=== PATIENT | male | born 1965 | race African-American/Black ===

== ENCOUNTER 2020-04-24 05:59 | Emergency (ER) | payer BC ==
[~2020-04-24] VITALS: Ht 175.3 cm; Wt 81.6 kg
[2020-04-24 06:06] VITALS: Ht 175.3 cm; Wt 81.6 kg
[2020-04-24 08:04] VITALS: BP 131/76
== END 2020-04-24 07:40 | disposition home or self-care (01) ==
LOC: ED 05:59
DX: S29.012A Strain of muscle and tendon of back wall of thorax, initial encounter (principal); I10 Essential (primary) hypertension; Z88.6 Allergy status to analgesic agent; X58.XXXA Exposure to other specified factors, initial encounter; Y93.89 Activity, other specified; Y92.89 Other specified places as the place of occurrence of the external cause; Y99.8 Other external cause status
CPT/HCPCS: J1885; Q0092